=== PATIENT | male | born 1990 | race African-American/Black ===

== ENCOUNTER 2018-01-22 07:20 | Day surgery (SDC) | END 2018-01-22 13:55 | disposition home or self-care (01) ==

== ENCOUNTER 2018-01-23 18:40 | Emergency (ER) | END 2018-01-23 20:37 | disposition left against medical advice (07) ==

== ENCOUNTER 2018-01-24 13:59 | Emergency (ER) | END 2018-01-24 15:36 | disposition home or self-care (01) ==

== ENCOUNTER 2019-01-31 17:32 | Emergency (ER) | payer OTHER ==
[~2019-01-31] VITALS: Ht 193 cm; Wt 153.7 kg
[~2019-01-31 17:32] MED LIST: OXYC-209 PO
[2019-01-31 17:46] VITALS: Ht 193 cm; Wt 153.7 kg
[2019-01-31] MEDS ORDERED: HYDR-4011 PO (21:21)
--- NOTE | 2019-01-31 21:33 | ERD ---
ER Documentation Chief Complaint Chief Complaint left knee pain HPI 28-year-old male with no reported past medical history who presents with a two- day complaint of left knee pain. He relates a history of over 8 different surgeries to bilateral knees most recently March 2018 in which he had a scope. States he has had multiple ligamentous and tendinous repairs. States he was playing basketball over the weekend and next morning he noticed his knee with prominent swelling. He denies any injury did not sustain any falls while playing. States that swelling has abided somewhat but still with persistent pain. He has tried Tylenol No. 3 as well as tramadol for his pain which helped only moderately helped. He otherwise is without complaint. ROS All systems reviewed and are negative except as per history of present illness. Medications Home Meds Active Scripts Hydrocodone/Acetaminophen ([place] 5-325 Tablet) 1 Each Tablet, 1 TAB PO Q6H PRN for PAIN, #10 TAB Prov:MARILOU CRUM PA-C 01/31/19 Oxycodone HCl/Acetaminophen (Percocet 10-325 mg Tablet) 1 Each Tablet, 1 EACH PO Q4, #15 TAB Prov:VIRGEN COLEMAN PA-C 01/24/18 Allergies Allergies: Coded Allergies: naproxen (Verified Adverse Reaction, Unknown, UPSET STOMACH, 01/22/18) PMhx/Soc History of Surgery: Yes (LEFT KNEE X2 SX, RT KNEE X1) Anesthesia Reaction: No Hx Neurological Disorder: No Hx Respiratory Disorders: No Hx Cardiac Disorders: No Hx Psychiatric Problems: No Hx Miscellaneous Medical Probl: No Hx Alcohol Use: No Hx Substance Use: No Hx Tobacco Use: Yes (2 CIG A DAY) Smoking Status: Never smoker Physical Exam Vitals Vital Signs Date Temp Pulse Resp B/P (MAP) Pulse Ox O2 O2 Flow FiO2 Time Delivery Rate 01/31/19 97.3 90 16 168/85 98 17:46 (112) Physical Exam I have reviewed the triage vital signs. Const: Well nourished, well developed, appears stated age Eyes: PERRL, no conjunctival injection HENT: NCAT, Neck supple without meningismus CV: RRR, Warm, well-perfused extremities RESP: CTAB, Unlabored respiratory effort GI: soft, non-tender, non-distended, no masses MSK: No gross deformities appreciated Skin: Warm, dry. No rashes Neuro: Alert, support associate II-XII grossly intact. Sensation and motor function of extremities grossly intact. Left Knee exam No pain at head if fibula No isolated patellar tenderness, no bruising,trace edema to medial aspect of knee, negative anterior drawer able to flex knee > 45 degree but with pain Ability to walk 4 weight bearing steps both immediately and in ED Able to transfer weight twice onto each lower limb Sensation intact to light touch. 2+ DP pulses. Psych: Appropriate mood and affect. Procedures/MDM 28-year-old male with history of multiple knee surgeries presents with L knee pain after playing basketball this past weekend. He denies any injury or trauma to left knee. Pain may be secondary to sprain or strain of left knee. Given reported injury or fall and unremarkable exam I deferred bony imaging. I have instructed patient to follow-up with his orthopedic surgeon as he might have ligamentous or tendinous injury which will require nonemergent imaging. Plan: Rx with short course of [place] for pain control until he follows up with his orthopedic surgeon. Strict return precautions explained to patient. Departure Diagnosis: Primary Impression: Knee pain Condition: Stable Patient Instructions: Knee Sprain Referrals: [facility] YOU HAVE RECEIVED A MEDICAL SCREENING EXAM AND THE RESULTS INDICATE THAT YOU DO NOT HAVE A CONDITION THAT REQUIRES URGENT TREATMENT IN THE EMERGENCY DEPARTMENT. FURTHER EVALUATION AND TREATMENT OF YOUR CONDITION CAN WAIT UNTIL YOU ARE SEEN IN YOUR DOCTORS OFFICE WITHIN THE NEXT 1-2 DAYS. IT IS YOUR RESPONSIBILITY TO MAKE AN APPOINTMENT FOR FOLOW-UP CARE. IF YOU HAVE A PRIMARY DOCTOR --you should call your primary doctor and schedule and appointment IF YOU DO NOT HAVE A PRIMARY DOCTOR YOU CAN CALL OUR PHYSICIAN REFERRAL HOTLINE AT . IF YOU CAN NOT AFFORD TO SEE A PHYSICIAN YOU CAN CHOSE FROM THE FOLLOWING FORMERLY [facility] & [facility] INSTITUTIONS: [facility] [id number] [place] [address] [facility] [address] [place] [address] [facility] [address] [place] [address] Additional Instructions: Call your primary care doctor TOMORROW for an appointment during the next 2-3 days.See the doctor sooner or return here if your condition worsens before your appointment time. MARILOU CRUM PA-C Jan 31, 2019 21:33
[2019-01-31 21:45] VITALS: BP 128/80; PULSE 62; RESP 18
== END 2019-01-31 22:11 | disposition home or self-care (01) ==
LOC: FTE 17:32
DX: M25.562 Pain in left knee (principal); Z87.891 Personal history of nicotine dependence
CPT/HCPCS: 99283